=== PATIENT | male | born 1985 | race Caucasian/White ===

== ENCOUNTER 2017-03-01 14:28 | Emergency (ER) | payer BC ==
[2017-03-01 17:30] VITALS: BP 133/76
[2017-03-01] MEDS ORDERED: Lidocaine 1% MPF* 2 ML VIAL INJ ONE (18:02)
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
== END 2017-03-01 18:52 | disposition home or self-care (01) ==
LOC: UCEAST 14:28
DX: S00.432A Contusion of left ear, initial encounter (principal); Z88.1 Allergy status to other antibiotic agents; J45.909 Unspecified asthma, uncomplicated; Z87.891 Personal history of nicotine dependence; W22.8XXA Striking against or struck by other objects, initial encounter; Y92.9 Unspecified place or not applicable
CPT/HCPCS: 99212; G0463